=== PATIENT | male | born 1990 | race African-American/Black ===

== ENCOUNTER 2023-05-24 17:24 | Emergency (ER) | payer OTHER ==
[~2023-05-24] VITALS: Ht 175.3 cm; Wt 94.0 kg
[2023-05-24 23:04] VITALS: BP 131/86; TEMP 98.6; O2SAT 98
[2023-05-24] MEDS: methylPREDNISolone 125MG 2ML VIAL IM ONE (23:07)
[2023-05-24] MEDS ORDERED: PRED20TA PO (23:34)
== END 2023-05-24 23:41 | disposition home or self-care (01) ==
LOC: M ED 17:24
DX: R21 Rash and other nonspecific skin eruption (principal)
CPT/HCPCS: 96372; 99283; J2919

== ENCOUNTER 2023-05-25 12:45 | Emergency (ER) | payer OTHER ==
[~2023-05-25] VITALS: Ht 175.3 cm; Wt 95.1 kg
[~2023-05-25 12:45] MED LIST: PRED20TA PO
[2023-05-25] MEDS: methylPREDNISolone 125MG 2ML VIAL IM ONE (15:21)
[2023-05-25 15:26] VITALS: BP 130/79; TEMP 97.3; O2SAT 98
== END 2023-05-25 15:28 | disposition home or self-care (01) ==
LOC: M ED 12:45
DX: R21 Rash and other nonspecific skin eruption (principal); F10.10 Alcohol abuse, uncomplicated; Z11.4 Encounter for screening for human immunodeficiency virus [HIV]
CPT/HCPCS: 87389; 96372; 99283; J2919